=== PATIENT | male | born 1990 | race Caucasian/White ===

== ENCOUNTER 2024-02-21 11:14 | Outpatient (CLI) | payer BC, SELFPAY ==
[2024-02-21 19:25] LABS: Basophils Percent Auto 0.5 % (0.2-1.2); Eosinophils Percent Auto 0.7 % (0-4.4); Hematocrit 44.9 % (42.0-52.0); Hemoglobin 15.4 g/dL (14.0-18.0); Lymphocytes Absolute Auto 1.78 K/mm3 (0.9-3.2); Lymphocytes Percent Auto 31.1 % (18.3-44.2); Mean Corpuscular HGB Conc 34.3 g/dl (32-36); Mean Corpuscular Hemoglobin 29.2 pg (26-34); Mean Corpuscular Volume 85.2 fl (80-100); Mean Platelet Volume 9.4 fl (7.4-10.4); Monocytes Absolute Auto 0.4 K/mm3 (0.1-0.6); Monocytes Percent Auto 7.5 % (2.6-8.5); Neutrophils Absolute Auto 3.5 K/mm3 (1.3-6.7); Neutrophils Percent Auto 60.2 % (45.5-73.1); Platelet Count Result 306 k/mm3 (150-375); Red Blood Count 5.27 M/mm3 (4.6-6.20); Red Cell Distribution Width 12.5 % (11.5-14.5); White Blood Count 5.7 K/mm3 (4.5-10.0)
[2024-02-21 19:44] LABS: Alanine Aminotransferase 37 U/L (6-50); Albumin Level 4.8 g/dL (3.5-5.1); Alkaline Phosphatase 78 U/L (38-126); Anion Gap 6 mmol/L (4-12); Aspartate Amino Transferase 34 U/L (17-59); Bilirubin,Total 0.7 mg/dL (0.2-1.3); Blood Urea Nitrogen 14 mg/dL (9-20); Calcium 9.8 mg/dL (8.4-10.2); Carbon Dioxide 28 mmol/L (22-30); Chloride 104 mmol/L (98-107); Estimated Glomerular Filt Rate > 60; Glucose 100 mg/dL (65-110); Potassium 4.4 mmol/L (3.4-5.0); Sodium 138 mmol/L (137-145)
[2024-02-21 20:43] LABS: Folic Acid 16.7 ng/mL (2.76->20)
== END 2024-02-21 11:15 | disposition home or self-care (01) ==
LOC: ANHGOSHLAB 11:15
PROVIDERS: PCP Internal Medicine; Visit Provider Internal Medicine
DX: N52.9 Male erectile dysfunction, unspecified (principal); R20.0 Anesthesia of skin; R20.2 Paresthesia of skin
CPT/HCPCS: 36415; 80053; 82607; 82746; 84443; 85025

== ENCOUNTER 2024-03-01 15:22 | Outpatient (CLI) | payer BC, SELFPAY ==
--- NOTE | ~2024-03-01 | MR_ITS ---
MRI of the lumbar spine Clinical History: Paresthesia Technique: Axial T2-weighted images, and sagittal T1-weighted, T2-weighted, and T2 fat-sat images wer e acquired. Following intravenous administration of 20 cc MultiHance gadolinium, T1-weighted fat-sat imaging was performed in the axial and sagittal planes. Findings: There is no fracture or subluxation of the lumbar spine. Vertebral bodies maintain normal h eight and alignment. No bone marrow signal abnormality seen. At L1-L2 and L2-L3, there is no disc bulge or herniation. There are moderate facet joint hypertrophi c changes at these levels. No spinal canal stenosis at these levels. Neural foramina are preserved at these levels. At L3-L4, there is minimal disc desiccation. There is minimal disc bulge and mild to moderate facet a rthropathy. No central canal stenosis. There is mild bilateral neural foraminal narrowing. At L4-L5, there is no disc bulge or herniation. There is moderate facet arthropathy. No spinal canal stenosis. Probable mild bilateral neural foraminal narrowing bilaterally. At L5-S1, there is no disc bulge or herniation. There is mild to moderate facet arthropathy. No centr al canal stenosis or neural foraminal narrowing. Paravertebral soft tissues are unremarkable. No abnormal postcontrast enhancement identified. Impression: Minimal degenerative spondylosis, as above. Reviewed, dictated and finalized at [facility]. Impression: Minimal degenerative spondylosis, as above.
== END 2024-03-01 15:23 ==
PROVIDERS: PCP Internal Medicine; Visit Provider Internal Medicine
DX: R20.0 Anesthesia of skin (principal); R20.2 Paresthesia of skin
CPT/HCPCS: 72158; A9577

== ENCOUNTER 2024-04-03 09:13 | Outpatient (CLI) | payer BC, SELFPAY ==
--- NOTE | 2024-04-03 11:30 | NEURO_ITS ---
Impression: # Complains of numbness waist down. # Normal motor/sensory Nerve Conduction Study. # Normal needle/EMG exam. # Clinical correlation recommended; Higher involvement needs to be ruled out. Nerve Conduction Studies Anti Sensory Summary Table Stim Site NR Peak (ms) P-T Amp (?V) Site1 Site2 Delta-P (ms) Dist (cm) David (m/s) Left Sup Fibular Anti Sensory (Ant Lat Mall) 14 cm 2.9 21.5 14 cm Ant Lat Mall 2.9 16.0 55 Right Sup Fibular Anti Sensory (Ant Lat Mall) 14 cm 2.9 15.6 14 cm Ant Lat Mall 2.9 16.0 55 Left Sural Anti Sensory (Lat Mall) Calf 3.7 16.7 Calf Lat Mall 3.7 18.0 49 Right Sural Anti Sensory (Lat Mall) Calf 3.5 5.4 Calf Lat Mall 3.5 16.0 46 Motor Summary Table Stim Site NR Onset (ms) O-P Amp (mV) Site1 Site2 Delta-0 (ms) Dist (cm) David (m/s) Left Peroneal Motor (Vastus Med) Ankle 4.4 1.4 Popit Ankle 7.5 41.0 55 Popit 11.9 2.1 Right Peroneal Motor (Vastus Med) Ankle 3.9 3.2 Popit Ankle 7.4 39.0 53 Popit 11.3 3.2 Left Tibial Motor (Abd Greenfield Brev) Ankle 4.1 4.4 Knee Ankle 7.9 41.0 52 Knee 12.0 2.2 Right Tibial Motor (Abd Greenfield Brev) Ankle 4.2 9.3 Knee Ankle 7.8 39.0 50 Knee 12.0 9.4 F Wave Studies NR F-Lat (ms) L-R F-Lat (ms) Left Peroneal (Mrkrs) (EDB) 47.30 1.18 Right Peroneal (Mrkrs) (EDB) 48.48 1.18 Left Tibial (Mrkrs) (Abd Hallucis) 48.83 0.82 Right Tibial (Mrkrs) (Abd Hallucis) 49.65 0.82 EMG Side Muscle Nerve Root Ins Act Fibs Amp Dur Recrt Comment Right AntTibialis Dp Br Fibular L4-5 Nml Nml Nml Nml Nml Right Gastroc Tibial S1-2 Nml Nml Nml Nml Nml Right Fibularis Long Sup Br Fibular L5-S1 Nml Nml Nml Nml Nml Right Flex Dig Long Tibial L5-S2 Nml Nml Nml Nml Nml Right Ext Dig Brev Dp Br Fibular L5, S1 Nml Nml Nml Nml Nml Left AntTibialis Dp Br Fibular L4-5 Nml Nml Nml Nml Nml Left Gastroc Tibial S1-2 Nml Nml Nml Nml Nml Left Fibularis Long Sup Br Fibular L5-S1 Nml Nml Nml Nml Nml Left Flex Dig Long Tibial L5-S2 Nml Nml Nml Nml Nml Left Ext Dig Brev Dp Br Fibular L5, S1 Nml Nml Nml Nml Nml MTDD
== END 2024-04-03 09:14 | disposition home or self-care (01) ==
PROVIDERS: PCP Internal Medicine; Visit Provider Internal Medicine
DX: R20.0 Anesthesia of skin (principal); R20.2 Paresthesia of skin
CPT/HCPCS: 95886; 95910